=== PATIENT | female | born 1975 | race Caucasian/White ===

== ENCOUNTER 2025-03-06 13:32 | Outpatient (AMB) | payer MEDICAID, SELFPAY ==
[2025-03-06 13:55] VITALS: BP 132/83; PULSE 85; RESP 16; TEMP 36.6; O2SAT 98
--- NOTE | 2025-03-06 13:55 | GYNCLNT_ITS ---
Vital Signs 03/06/25 13:55 Weight 72.235 kg Weight Measurement Method Standing Scale BP 132/83 H Blood Pressure Source Automatic Cuff Blood Pressure Location Left Upper Arm Position Sitting Respiration 16 Pulse 85 Pulse Source Monitor Temp 97.8 F Temp Source Oral Pulse Oximetry (%) 98 Oxygen Delivery Method Room Air Allergies/Home Meds Allergies & Medications Allergies latex Allergy (Intermediate, Verified 03/06/25 13:56) Rash Penicillins Allergy (Intermediate, Verified 03/06/25 13:56) ITCHING HYPERVENTILATION Medication Reconciliation alprazolam 0.25 mg tablet (Xanax) 0.25 mg PO BID PRN Anxiety 01/20/22 [History Confirmed 03/06/25] Held on 01/30/23. Instructions: Resume on 01/31/23. levothyroxine 137 mcg tablet (Synthroid) 137 mcg PO QDAY 01/20/22 [History Confirmed 03/06/25] losartan 25 mg tablet 50 mg PO DAILY 01/20/22 [History Confirmed 03/06/25] pantoprazole 40 mg tablet,delayed release (Protonix) 40 mg PO BID #60 tabs 09/14/22 [Rx Confirmed 03/06/25] Intake Visit Data Collection New Patient or Established: Established Patient (seen at [facility] within 3 years) Reason for Visit:: BREAST TENDERNESS Seen by Clinical Staff ONLY (RN/MA): No Installation Coordinator Required: No Do You Feel Safe at Home: Yes Authorities Contacted: N/A PCP or OBGYN visit in last 3 months: No Hx Now: No Are you currently on any form of Control: Yes Last menstrual period: 02/24/25 Pain Present Currently: No Pain Scale Used: Quiñonez-Coleman/Numerical Pain scale:: 0 Smoking Status Smoking Status: Never smoker 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 1. Little interest or pleasure in doing things: not at all 2. Feeling down, depressed, or hopeless: not at all Total score: 0 PHQ-9 3. Trouble falling or staying asleep, or sleeping too much: Not at all 4. Feeling tired or having little energy: Not at all 5. Poor appetite or overeating: Not at all 6. Feeling bad about yourself - or that you are a failure or have let yourself or your family down: Not at all 7. Trouble concentrating on things, such as reading the newspaper or watching television: Not at all 8. Moving or speaking so slowly that other people could have noticed? - Or the opposite - being so fidgety or restless that you have been moving around a lot more than usual: not at all 9. Thoughts that you would be better off or of hurting yourself in some way: Not at all Total score: 0 Source: Developed by Drs. Bernardo Starks, Aleah Merritt, Mark Matthews and colleagues, with an educational ham from [employer]. Depression screen completed yes Social History Living Situation History Marital Status: Lives With: Family Housing: House Tobacco History Smoking Status: Never smoker Second Hand Smoke Exposure: No Alcohol History Alcohol Intake: Never Domestic Abuse History Do You Feel Safe at Home: Yes Past Medical History Past Medical History Have you ever been diagnosed with any of the following: Cardiology Problems Hypertension: Yes Respiratory Problems Sleep Apnea: Yes CPAP Dependent: No Stomache/Intestinal Problems Ulcer: Yes Reproductive Problems Breast Cancer: No Endometriosis: No Fibroids: No Genital Herpes: No Gonorrhea: No Pelvic Inflammatory Disease: No Polycystic Ovarian Syndrome: No Previous Pregnancies: Yes Musculoskeletal Problems Arthritis: No Rheumatoid Arthritis: No Fibromyalgia: No Endocrine Problems Diabetes Mellitus Type 2: No Hypothyroidism: Yes Graves' Disease: Yes Psychologic Problems Anxiety: Yes Other Problems Autoimmune Disease: No Cosmetic Surgery: Yes (Breast implants Dr. Serrano) Blood Transfusions: No Blood Transfusion Reaction: No Anesthesia Reactions: No Chicken Pox: Yes Measles: No Mumps: No Cancer: No Surgical History Breast Surgery: Yes (Breast implants) Cholecystectomy: Yes Additional Surgical History: Radioactive thyroid cholecystectomy breast implants upper GI History of Present Illness HPI Narrative The patient is a 49-year-old female she has had babies in the past. She did not fill out any new gynecological evaluation form and all I have a referral from a nurse practitioner at [facility]. Patient would like to discuss inflammation in her breasts. She thinks her breast implants that were placed a while ago with Dr. Serrano, about 13 years ago, are causing inflammation. She has been seeing a coal cutting machine operator for nonspecific inflammation she read somewhere that if she takes her implants out this might help. They are saline implants. 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 She is wondering if she would qualify for an MRI of the breasts. She is considering getting her implants removed with Dr. Serrano. She wants to make sure they are not leaking and causing inflammation. She has not been diagnosed with celiac's disease she had Graves' disease in the past, status post radioactive ablation of her thyroid. I have no records except for 2 pages from her nurse practitioner Kasey Rodriguez. Patient basically would like an MRI to evaluate her breasts. She is due for a Pap and she has had HPV on and off in the past . Again I have no records. Review of Systems Review of Systems Narrative Review of Systems: Patient has sleep apnea but this is managed with a mouthguard. She has regular cycles no hot flashes night sweats she has some cyst by her buttocks that she wants to get looked at when she has her annual. I am unsure when her last annual was which she has had HPV in the past. She states her breasts are swollen and tender. She has diffuse tenderness in her joints. A lot of rheumatological and joint pain. She is on Synthroid Repatha injection to treat high cholesterol and losartan for high blood pressure Exam General General Appearance: alert, in no apparent distress, comfortable, cooperative, healthy appearing, well groomed and anxious (Very rapid speech) Exp Chest Breast: bilateral: tenderness and other (Bilateral breast implants in place no lumps no erythema) Assessment & Plan Diagnosis / Problem List (1) Bilateral mastodynia: Status: Acute Assessment and Plan: Breast implants in place. Will try to authorize for MRI. Patient to schedule annual gynecological examination (2) Inflammation of multiple joints: Status: Acute Assessment and Plan: Follow-up with rheumatology (3) Breast implant leak: Status: Acute Qualifiers: Encounter type: initial encounter Qualified Code(s): T85.43XA - Leakage of breast prosthesis and implant, initial encounter Assessment and Plan: Order MRI to rule out leak of bilateral breast implants Office Procedures OB Clinic LOC & Office Proc's Nursing/Assessment Patient Status: Established Patient OB Clinic Nursing Assessment: Medication Reconciliation, Update PMH in EMR and Vital Signs OB Clinic Coordination of Care: Complex Care and Chronic Disease 1-5, Consent,records obtained, informed consent, Education Simp Pt/Fam, Lab and Imaging orders, Results/Orders obtained and Staff clarify orders Established Patient Charge Established Patient Point Assignment: 105 Established Patient Point Charge: EP Level 3 (80-115)
== END 2025-03-06 14:42 | disposition home or self-care (01) ==
LOC: HODSOBC 13:32
PROVIDERS: Supervising Provider Obstetrics & Gynecology; Visit Provider Obstetrics & Gynecology
DX: N64.4 Mastodynia (principal); T85.43XA Leakage of breast prosthesis and implant, initial encounter; G47.30 Sleep apnea, unspecified; E78.00 Pure hypercholesterolemia, unspecified; M13.0 Polyarthritis, unspecified; I10 Essential (primary) hypertension; Z90.49 Acquired absence of other specified parts of digestive tract; Z79.899 Other long term (current) drug therapy; Z79.890 Hormone replacement therapy; Y83.8 Other surgical procedures as the cause of abnormal reaction of the patient, or of later complication, without mention of misadventure at the time of the procedure
CPT/HCPCS: 99213; G0463

== ENCOUNTER 2025-06-17 08:59 | Outpatient (AMB) | payer MEDICAID, SELFPAY ==
[2025-06-17 09:13] VITALS: BP 157/83; PULSE 73; RESP 17; TEMP 37; O2SAT 99; BMI 27.5
--- NOTE | 2025-06-17 09:13 | GYNCLNT_ITS ---
Vital Signs 06/17/25 09:13 Height 1.65 m Height Method Stated Weight 75.013 kg Weight Measurement Method Standing Scale BMI 27.5 BP 157/83 H Blood Pressure Source Automatic Cuff Blood Pressure Location Right Upper Arm Position Sitting Respiration 17 Pulse 73 Pulse Source Monitor Temp 98.6 F Temp Source Temporal Artery Scan Pulse Oximetry (%) 99 Oxygen Delivery Method Room Air Allergies/Home Meds Allergies & Medications Allergies latex Allergy (Intermediate, Verified 06/17/25 09:14) Rash Penicillins Allergy (Intermediate, Verified 06/17/25 09:14) ITCHING HYPERVENTILATION Medication Reconciliation alprazolam 0.25 mg tablet (Xanax) 0.25 mg PO BID PRN Anxiety 01/20/22 [History Confirmed 06/17/25] Held on 01/30/23. Instructions: Resume on 01/31/23. 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 Do You Feel Safe at Home: Yes Authorities Contacted: N/A PCP or OBGYN visit in last 3 months: No Hx Now: No Are you currently on any form of Control: Yes (CONDOMS) Last menstrual period: 06/13/25 Pain Present Currently: No Pain Scale Used: Quiñonez-Coleman/Numerical Pain scale:: 0 Smoking Status Smoking Status: Never smoker 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 Menstrual regularity: irregular Flow: light Monthly: Yes How many days does period last: 4 Age at menarche: 14 Currently sexually active: Yes 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 1. Little interest or pleasure in doing things: not at all 2. Feeling down, depressed, or hopeless: not at all Total score: 0 PHQ-9 3. Trouble falling or staying asleep, or sleeping too much: Not at all 4. Feeling tired or having little energy: Not at all 5. Poor appetite or overeating: Not at all 6. Feeling bad about yourself - or that you are a failure or have let yourself or your family down: Not at all 7. Trouble concentrating on things, such as reading the newspaper or watching television: Not at all 8. Moving or speaking so slowly that other people could have noticed? - Or the opposite - being so fidgety or restless that you have been moving around a lot more than usual: not at all 9. Thoughts that you would be better off or of hurting yourself in some way: Not at all Total score: 0 If you checked off any problems, how difficult have these problems made it for you to do your work, take care of things at home, or get along with other people?: not difficult at all Source: Developed by Drs. Bernardo Starks, Aleah Merritt, Mark Matthews and colleagues, with an educational ham from [employer]. Depression screen completed yes Social History Living Situation History Marital Status: Single Lives With: Family Housing: House Housing Other:: Has a 21-year-old Tobacco History Smoking Status: Never smoker Second Hand Smoke Exposure: No Alcohol History Alcohol Intake: Current Domestic Abuse History Do You Feel Safe at Home: Yes History of Present Illness HPI Narrative The patient is a 50-year-old -0-3-1 history of 2 spontaneous twin pregnancies. The first twin she lost 1 twin but carried the second twin, her 21-year-old son to term. With the second she lost a set of twins early. She presents for an annual exam. She has had some bleeding and some irregular heartbeats patient. No specific hot flashes night sweats she has some type of rheumatological condition and her anesthesiology crna was going to prescribe hydrochloroquine which the patient states is pretty mild every once while her finger hurts, and for her shoulder hurts but she has no chronic debilitating pain. She wants to know my opinion on the hydrochloroqine. She is not on hormones. Her last Pap was in 2022 last menstrual period started 06/13/2024 she is using condoms for contraception. Menstrual character: irregular in timing Gynecologic pain symptoms: Reports none Menopause concerns/symptoms: Reports none Other pertinent information: The patient is using condoms for contraception. Her cycles are a little irregular but not heavy. She does not have a lot of perimenopausal concerns at this time. She is a little heard. She does have a history of anxiety and depression. She declines the need for hormones at this time her primary check some hormone levels on her which I do not have the results on. She can further discuss this with the provider who ordered them. Review of Systems Review of Systems Narrative Review of Systems: Patient denies hot flashes night sweats she reports some moodiness some irregularity to her periods no pelvic pain no incontinence. No painful intercou rse. She forts weight gain. She last had a mammogram in 2022 and a colonoscopy in 2022 Systems Reviewed: All systems reviewed, normal except as documented Exam Narrative Physical exam: Patient has a normal breast exam bilaterally. She has implants in place. No lymphadenopathy no nipple discharge no other abnormalities. General Limitations: no limitations General Appearance: alert, in no apparent distress, comfortable, cooperative, healthy appearing, well developed and well groomed Neck Neck exam: Present normal inspection, full ROM and trachea midline Chest Chest inspection: Present normal inspection and symmetric chest wall rise Resp Respiratory exam: Present normal lung sounds bilaterally Card Cardiovascular exam: Present regular rate, normal rhythm and normal heart sounds Abdominal Abdominal exam: Present soft and normal bowel sounds External exam: Present normal external exam Speculum exam: Present normal speculum exam Bimanual exam: Present normal bimanual exam Extremities Extremities exam: Present normal inspection and full ROM Psych Psychiatric exam: Present normal affect and normal mood Skin Skin exam: Present warm, dry, intact and normal color Office Procedures OB Clinic LOC & Office Proc's Nursing/Assessment Patient Status: Established Patient OB Clinic Nursing Assessment: Medication Reconciliation, Update PMH in EMR and Vital Signs OB Clinic Coordination of Care: Complex Care and Chronic Disease 1-5, Consent,records obtained, informed consent, Education Simp Pt/Fam, Lab and Imaging orders and Staff clarify orders Miscellaneous Interventions: Breast Exam and Pelvic/Pap Smear Set up Established Patient Charge Established Patient Point Assignment: 150 Established Patient Point Charge: EP Level 4 (120-155) Assessment & Plan Diagnosis / Problem List (1) Encounter for Routine Gynecological Examination: Qualifiers: Gynecological examination findings: abnormal findings ABSENT Qualified Code(s): Z01.419 - Encounter for gynecological examination (general) (routine) without abnormal findings Assessment and Plan: Annual exam Pap with high-risk HPV performed breast exam done encouraged patient had a mammogram in 2022 that was normal she will need another mammogram and this was ordered. She had colon screening in 2022. She will follow-up yearly or as needed. 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
== END 2025-06-17 09:42 | disposition home or self-care (01) ==
LOC: HODSOBC 08:59
PROVIDERS: Supervising Provider Obstetrics & Gynecology; Visit Provider Obstetrics & Gynecology
DX: Z01.419 Encounter for gynecological examination (general) (routine) without abnormal findings (principal); Z11.51 Encounter for screening for human papillomavirus (HPV); F41.9 Anxiety disorder, unspecified; F32.A Depression, unspecified; E03.9 Hypothyroidism, unspecified; I10 Essential (primary) hypertension; Z79.890 Hormone replacement therapy; Z79.899 Other long term (current) drug therapy
CPT/HCPCS: 99214; G0463

== ENCOUNTER → 2025-10-05 | Outpatient (CLI) | payer MEDICAID, SELFPAY ==
--- NOTE | 2025-10-05 09:24 | XR_ITS ---
EXAMINATION: Ultrasound soft tissue knee TECHNIQUE: Grayscale sonographic images soft tissue knee Date and time: October 05 2025, 0934 hours INDICATIONS: Left posterior knee pain beginning 1 week ago. FINDINGS: No cystic or solid mass in the posterior knee IMPRESSION: No cystic or solid mass in the soft tissue posterior knee
== END | disposition home or self-care (01) ==
PROVIDERS: PCP Nurse Practitioner Family; Referring Provider Nurse Practitioner Family; Visit Provider Nurse Practitioner Family
DX: M79.605 Pain in left leg (principal)
CPT/HCPCS: 76882

== ENCOUNTER → 2025-10-07 | Outpatient (CLI) | payer MEDICAID, SELFPAY ==
--- NOTE | 2025-10-07 14:49 | XR_ITS ---
Examination: Duplex scan of the lower extremity, unilateral left complete Date and time of exam: October 07, 2025, 1456 hours INDICATIONS: Left leg pain beginning 2 weeks ago Technique: Duplex scan of the extremity veins using B-mode/grayscale imaging and Doppler spectral analysis and color flow Attention is directed to internal echogenicity, compression and augmentation involving these veins, color flow assessment, spectral analysis Findings: Major deep venous structures in the extremity demonstrate normal course and caliber. There is no evidence of deep vein thrombosis. Normal color flow and spectral analysis Impression: Negative for DVT.
== END | disposition home or self-care (01) ==
LOC: CDIM 14:31
PROVIDERS: PCP Nurse Practitioner Family; Referring Provider Nurse Practitioner Family; Visit Provider Nurse Practitioner Family
DX: M79.605 Pain in left leg (principal)
CPT/HCPCS: 93971